=== PATIENT | female | born 1985 | race Caucasian/White ===

== ENCOUNTER 2018-02-27 16:09 | Emergency (ER) | payer OTHER ==
[~2018-02-27] VITALS: Ht 149.9 cm; Wt 64.4 kg
[~2018-02-27 16:09] MED LIST: AMOX500C25; [UNRECOGNIZED DRUG - CODE]
[2018-02-27 16:48] VITALS: BP 131/78
--- NOTE | 2018-02-27 16:58 | NUR ---
patient to lobby with steady gait. awaiting available room. nad.
--- NOTE | 2018-02-27 17:22 | NUR ---
PATIENT AMBULATED TO THE ER BED 6.
--- NOTE | 2018-02-27 17:30 | NUR ---
PT PRESENTS TO THE ED WITH C/O ABD PAIN. PATIENT STATES SHE HAS BEEN HAVING DIARRHEA SINCE YESTERDAY AND HAD EPISODES OF VOMITING. PATIENT RATES PAIN 8/10. NO ACTIVE VOMTING AT THIS TIME. PATIENT REPORTS THAT HER LAST MEAL WAS LAST NIGHT. BED LOWERED. MD MADE AWARE OF PATIENT'S STATUS
--- NOTE | 2018-02-27 19:13 | NUR ---
Pt report given to KHADAR STALEY. Transfer of care at this time.
--- NOTE | 2018-02-27 19:15 | NUR ---
ASSUMED CARE OF PT AT THIS TIME, PT IN BED, AWAKE AND ACTING APPROPRIATE, WILL CONTINUE TO MONITOR.
[2018-02-27] MEDS: DICYCLOMINE 20 MG/2 ML VIAL IM ONE (19:24)
[2018-02-27 19:33] LABS: HEMOGLOBIN 13.5 g/dL (12.0-16.0); RED BLOOD CELL COUNT(AUTO) 5.44 MIL/uL (4.20-5.40); WHITE BLOOD COUNT (AUTO) 13.1 K/uL (4.8-10.8)
[2018-02-27 19:34] LABS: BASOPHILS % (AUTO) 0.2 % (0.0-2.0); EOSINOPHILS # (AUTO) 0.2 K/uL (0-0.4); EOSINOPHILS % (AUTO) 1.4 % (0.0-4.0); LYMPHOCYTES # (AUTO) 1.7 K/uL (2.5-16.5); LYMPHOCYTES % (AUTO) 12.9 % (20.5-51.1); MEAN CORPUSCULAR HEMOGLOBIN 25 pg (27-31); MEAN CORPUSCULAR HGB CONC 32 g/dL (33-37); MEAN CORPUSCULAR VOLUME 77.1 fL (80-94); MONOCYTES # (AUTO) 1.3 K/uL (0.8-1.0); MONOCYTES % (AUTO) 9.8 % (1.7-9.3); NEUTROPHILS # (AUTO) 9.9 K/uL (1.8-7.7); NEUTROPHILS % (AUTO) 75.7 % (42.2-75.2); PLATELET COUNT (AUTO) 409 K/uL (140-450); RED CELL DISTRIBUTION WIDTH 15.7 % (11.6-13.7)
[2018-02-27 19:42] LABS: ANION GAP 8.8 (8-16); CARBON DIOXIDE 29.3 mmol/L (21-32); CREATININE 0.8 mg/dL (0.6-1.3); POTASSIUM 4.1 mmol/L (3.5-5.1)
[2018-02-27 19:49] LABS: ALBUMIN 3.4 g/dL (3.4-5.0); TOTAL BILIRUBIN 0.3 mg/dL (0.0-1.0)
[2018-02-27] MEDS: KETOROLAC 30 MG/ML VIAL IM ONE (20:58)
--- NOTE | 2018-02-27 20:58 | NUR ---
PT TAKEN TO CT
--- NOTE | 2018-02-27 21:07 | NUR ---
PT RETURN FROM CT
--- NOTE | 2018-02-27 21:30 | NUR ---
PT STATES SHE IS FEELING BETTER, ER MADE AWARE
--- NOTE | 2018-02-27 21:32 | NUR ---
Dr. Beckwith evaluating patient at bedside.
[2018-02-27 21:55] VITALS: BP 120/82
--- NOTE | 2018-02-27 21:55 | NUR ---
Patient discharged with v/s stable. Written and verbal after care instructions given and explained. Patient alert, oriented and verbalized understanding of instructions. Ambulatory with steady gait. All questions addressed prior to discharge. ID band removed. Patient advised to follow up with PMD. Rx of FLAGYL 500MG AND BENTYL 20MG given. Patient educated on indication of medication including possible reaction and side effects. Opportunity to ask questions provided and answered.
== END 2018-02-27 21:55 | disposition home or self-care (01) ==
LOC: MED 16:09
DX: R10.84 Generalized abdominal pain (principal); R19.7 Diarrhea, unspecified; R11.10 Vomiting, unspecified; Z79.2 Long term (current) use of antibiotics; Z79.899 Other long term (current) drug therapy
CPT/HCPCS: 36415; 74176; 80053; 81025; 83690; 85025; 96372; 99284; J0500; J1885

== ENCOUNTER 2018-08-10 17:30 | Emergency (ER) | payer OTHER ==
[~2018-08-10] VITALS: Ht 154.9 cm; Wt 75.7 kg
[2018-08-10 17:33] VITALS: BP 136/83
--- NOTE | 2018-08-10 17:38 | NUR ---
PT AMB TO ER LOBBY. NO DISTRESS NOTED. PT [id number].
--- NOTE | 2018-08-10 18:06 | NUR ---
Pt. ambulated to bed 6
[2018-08-10] MEDS ORDERED: NACL 0.9% 1,000 ML IV SCH (18:16)
--- NOTE | 2018-08-10 18:30 | NUR ---
PT BIB SELF WITH C/O UTI SYMPTOMS SINCE MONDAY. +VAGINAL ITCHING AND DYSURIA, PAIN 05/16. WENT TO URGENT CARE ON MONDAY, DIAGNOSED WITH UTI. PRESCRIBED FLUCONAZOLE, SULFAMETHOXALE. DENIES LOWER BACK PAIN. PMH- DEPRESSION RX- BUPROPION, SERTRALINE HCL
[2018-08-10 18:58] LABS: BASOPHILS # (AUTO) 0.1 K/uL (0.00-0.22); BASOPHILS % (AUTO) 0.9 % (0.0-2.0); EOSINOPHILS # (AUTO) 0.3 K/uL (0-0.4); HEMATOCRIT 44.4 % (36-48); HEMOGLOBIN 14.5 g/dL (12.0-16.0); LYMPHOCYTES # (AUTO) 2.8 K/uL (2.5-16.5); LYMPHOCYTES % (AUTO) 25.4 % (20.5-51.1); MEAN CORPUSCULAR HEMOGLOBIN 26 pg (27-31); MEAN CORPUSCULAR HGB CONC 33 g/dL (33-37); MEAN CORPUSCULAR VOLUME 79.5 fL (80-94); MONOCYTES % (AUTO) 9.1 % (1.7-9.3); NEUTROPHILS # (AUTO) 6.8 K/uL (1.8-7.7); NEUTROPHILS % (AUTO) 61.6 % (42.2-75.2); PLATELET COUNT (AUTO) 463 K/uL (140-450); RED BLOOD CELL COUNT(AUTO) 5.59 MIL/uL (4.20-5.40); RED CELL DISTRIBUTION WIDTH 15.7 % (11.6-13.7)
[2018-08-10 19:02] LABS: APPEARANCE,URINE HAZY (CLEAR); BILIRUBIN,URINE NEGATIVE (NEGATIVE); BLOOD, URINE TRACE-I (NEGATIVE); COLOR,URINE YELLOW (YELLOW); LEUKOCYTE ESTERASE ,URINE 2+ (NEGATIVE); NITRITE, URINE NEGATIVE (NEGATIVE); UGLUCOSE NEGATIVE (NEGATIVE)
[2018-08-10 19:23] LABS: ALBUMIN 3.5 g/dL (3.4-5.0); ANION GAP 12.3 (8-16); CARBON DIOXIDE 25.6 mmol/L (21-32); CREATININE 0.7 mg/dL (0.6-1.3); TOTAL BILIRUBIN 0.4 mg/dL (0.0-1.0)
[2018-08-10 19:35] LABS: POTASSIUM 6.9 mmol/L (3.5-5.1)
[2018-08-10 19:36] LABS: RBC,URINE 0-5 /HPF (0-5)
[2018-08-10 19:37] LABS: WBC,URINE >25 (MANY) /HPF (0-5)
--- NOTE | 2018-08-10 19:45 | NUR ---
LAB REDRAW, SENT TO LAB
--- NOTE | 2018-08-10 19:59 | NUR ---
PELVIC SETUP COMPLETE
[2018-08-10 20:05] LABS: ANION GAP 13.7 (8-16); CARBON DIOXIDE 23.4 mmol/L (21-32); CREATININE 0.8 mg/dL (0.6-1.3); POTASSIUM 4.1 mmol/L (3.5-5.1)
--- NOTE | 2018-08-10 20:30 | NUR ---
LAB CALLED FOR URINE COLLECETION. PT MADE AWARE OF REQUIRING MORE URINE , JOHNY TO SENT OUT FOR ALPHONSO MITCHELL.
[2018-08-10] MEDS ORDERED: cefTRIAXone 1,000 MG VIAL ONE (20:31)
[2018-08-10] MEDS ORDERED: PHENAZOPYRIDINE 100 MG TAB PO ONE (20:40)
[2018-08-10 21:01] VITALS: BP 146/79
--- NOTE | 2018-08-10 21:01 | NUR ---
Patient discharged with v/s stable. Written and verbal after care instructions given and explained. Patient alert, oriented and verbalized understanding of instructions. Ambulatory with steady gait. All questions addressed prior to discharge. ID band removed. Patient advised to follow up with PMD. Rx of TYELENOL WITHCODEINE, PHENAZOPYRIDINE, KEFLEX given. Patient educated on indication of medication including possible reaction and side effects. Opportunity to ask questions provided and answered.
== END 2018-08-10 21:01 | disposition home or self-care (01) ==
LOC: MED 17:30
DX: N76.0 Acute vaginitis (principal); N39.0 Urinary tract infection, site not specified; Z79.899 Other long term (current) drug therapy
CPT/HCPCS: 36415; 80048; 80053; 81001; 81025; 83690; 85025; 87086; 87210; 93005; 96365; 99284; J0696; J7030

== ENCOUNTER 2019-02-14 11:36 | Emergency (ER) | payer OTHER ==
[~2019-02-14] VITALS: Ht 149.9 cm; Wt 73.3 kg
[2019-02-14 12:06] VITALS: BP 142/66
--- NOTE | 2019-02-14 12:08 | NUR ---
TRIAGE COMPLETE. VSS. RETURNED TO LOBBY TO WAIT FOR BED IN ED.
--- NOTE | 2019-02-14 13:30 | NUR ---
AMBULATED TO BED 7 WITH STEADY GAIT.
--- NOTE | 2019-02-14 13:31 | NUR ---
PT C/O HEADACHE WITH DIZZINESS, NAUSEA/VOMITING, BLURRED VISION X 3 DAYS. PATIENT STATES PAIN OF 7/10 AROUND THE WHOLE HEAD AT THIS TIME; VSS; PATIENT POSITIONED FOR COMFORT; HOB ELEVATED; BEDRAILS UP X1; BED DOWN. ER MD MADE AWARE OF PT STATUS.
--- NOTE | 2019-02-14 14:30 | NUR ---
PT IS RESTING IN BED WITH EYES OPENED. PT IS ON MINITOR.
[2019-02-14] MEDS ORDERED: KETOROLAC 30 MG/ML VIAL IVP ONE (14:40)
[2019-02-14] MEDS ORDERED: NACL 0.9% 1,000 ML IV ONE (14:40)
[2019-02-14 14:55] LABS: BASOPHILS % (AUTO) 0.4 % (0.0-2.0); EOSINOPHILS # (AUTO) 0.1 K/uL (0-0.4); EOSINOPHILS % (AUTO) 1.6 % (0.0-4.0); HEMOGLOBIN 13.6 g/dL (12.0-16.0); LYMPHOCYTES # (AUTO) 2.6 K/uL (2.5-16.5); MEAN CORPUSCULAR HEMOGLOBIN 25 pg (27-31); MEAN CORPUSCULAR HGB CONC 32 g/dL (33-37); MONOCYTES # (AUTO) 0.6 K/uL (0.8-1.0); MONOCYTES % (AUTO) 8.3 % (1.7-9.3); NEUTROPHILS # (AUTO) 4.1 K/uL (1.8-7.7); NEUTROPHILS % (AUTO) 54.7 % (42.2-75.2); PLATELET COUNT (AUTO) 321 K/uL (140-450); RED BLOOD CELL COUNT(AUTO) 5.39 MIL/uL (4.20-5.40); RED CELL DISTRIBUTION WIDTH 15.8 % (11.6-13.7); WHITE BLOOD COUNT (AUTO) 7.5 K/uL (4.8-10.8)
[2019-02-14 15:10] LABS: ANION GAP 13.5 (8-16); CARBON DIOXIDE 26.8 mmol/L (21-32); CREATININE 0.7 mg/dL (0.6-1.3); POTASSIUM 4.3 mmol/L (3.5-5.1)
[2019-02-14 15:16] LABS: ALBUMIN 3.6 g/dL (3.4-5.0); TOTAL BILIRUBIN 0.4 mg/dL (0.0-1.0)
--- NOTE | 2019-02-14 15:50 | NUR ---
PT HAS BEEN TAKEN TO CT SCAN VIA WHEELCHAIR ASSISTED BY FITNESS MANAGER.
--- NOTE | 2019-02-14 16:02 | NUR ---
PT HAS BEEN TAKEN BACK FROM CT SCAN VIA WHEELCHAIR ASSISTED BY SLOT MANAGER.
[2019-02-14 16:56] LABS: APPEARANCE,URINE CLEAR (CLEAR); COLOR,URINE YELLOW (YELLOW)
[2019-02-14 16:57] LABS: BILIRUBIN,URINE NEGATIVE (NEGATIVE); BLOOD, URINE NEGATIVE (NEGATIVE); LEUKOCYTE ESTERASE ,URINE 1+ (NEGATIVE); NITRITE, URINE NEGATIVE (NEGATIVE); UGLUCOSE NEGATIVE (NEGATIVE)
[2019-02-14 16:58] LABS: RBC,URINE 0-5 /HPF (0-5)
[2019-02-14 17:33] VITALS: BP 134/84
--- NOTE | 2019-02-14 17:33 | NUR ---
Patient discharged with v/s stable by Dr. Holliday. Written and verbal after care instructions given and explained. Patient alert, oriented and verbalized understanding of instructions. Ambulatory with steady gait. All questions addressed prior to discharge. ID band removed. Patient advised to follow up with PMD. Rx of Ciprofloxacin given. Patient educated on indication of medication including possible reaction and side effects. Opportunity to ask questions provided and answered.
== END 2019-02-14 17:33 | disposition home or self-care (01) ==
LOC: MED 11:36
DX: N39.0 Urinary tract infection, site not specified (principal); R11.2 Nausea with vomiting, unspecified; Z98.890 Other specified postprocedural states; Z79.899 Other long term (current) drug therapy; Z79.2 Long term (current) use of antibiotics
CPT/HCPCS: 36415; 70450; 80053; 81001; 81025; 85025; 87086; 96361; 96374; 99284; J1885; J7030

== ENCOUNTER 2019-08-18 03:51 | Emergency (ER) | payer OTHER, SELFPAY ==
[~2019-08-18] VITALS: Ht 149.9 cm; Wt 63.5 kg
[2019-08-18 04:01] VITALS: BP 140/88
--- NOTE | 2019-08-18 04:05 | NUR ---
PT TAKEN TO BED 4
[2019-08-18] MEDS ORDERED: LIDOCAINE MPF 1% 10 MG/ML VIAL INJ ONE (04:15)
[2019-08-18] MEDS ORDERED: DEXAMETHASONE 4 MG/ML VIAL PO STA (04:36)
[2019-08-18] MEDS ORDERED: KETOROLAC 30 MG/ML VIAL IM STA (04:36)
--- NOTE | 2019-08-18 04:37 | NUR ---
Susan henriquez in [facility] - 08/18/19 at 0438 by [facility] BACITRACIN WAS PLACED ON PTS LEFT ARM WOUND. LG BANDAID PLACED TO COVER WOUND. PTS PMSC WNL.
--- NOTE | 2019-08-18 05:00 | NUR ---
COVID SWAB COLLECTED ON PT, AND TAKEN TO LAB
[2019-08-18 05:05] VITALS: BP 140/88
--- NOTE | 2019-08-18 05:05 | NUR ---
Patient discharged with v/s stable. Written and verbal after care instructions given and explained. Patient alert, oriented and verbalized understanding of instructions. Ambulatory with steady gait. All questions addressed prior to discharge. ID band removed. Patient advised to follow up with PMD. Rx of MOTRIN, PREDNISONE, AMOXICILLIN given. Patient educated on indication of medication including possible reaction and side effects. Opportunity to ask questions provided and answered.
== END 2019-08-18 05:05 | disposition home or self-care (01) ==
LOC: MED 03:51 → EEVIPCON 03:51 → MED 05:05
DX: H92.01 Otalgia, right ear (principal); R07.0 Pain in throat; Z20.828 Contact with and (suspected) exposure to other viral communicable diseases
CPT/HCPCS: 96372; 99283; J1100; J1885; J2001; U0003

== ENCOUNTER 2021-04-22 07:42 | Emergency (ER) | payer OTHER, SELFPAY ==
[~2021-04-22] VITALS: Ht 152.4 cm; Wt 58.5 kg
[2021-04-22 07:45] VITALS: BP 116/81
--- NOTE | 2021-04-22 08:02 | NUR ---
PT STATES SHE IS UNABLE TO PROVIDE UA SAMPLE AT THIS TIME, NESTOR MADE AWARE.
--- NOTE | 2021-04-22 08:11 | NUR ---
DR. CRATY AT PT BEDSIDE FOR FURTHER EVALUATION.
--- NOTE | 2021-04-22 08:29 | NUR ---
PT WAS TAKEN FOR CT
--- NOTE | 2021-04-22 08:35 | NUR ---
PT TAKEN TO ER BED 9 VIA W/C.
--- NOTE | 2021-04-22 08:36 | NUR ---
DOG FOOD SHREDDER OPERATOR AT PT BEDSIDE.
[2021-04-22] MEDS: KETOROLAC 30 MG/ML VIAL IM ONE (08:44)
[2021-04-22 08:57] LABS: BASOPHILS # (AUTO) 0.1 K/uL (0.00-0.22); BASOPHILS % (AUTO) 0.6 % (0.0-2.0); EOSINOPHILS # (AUTO) 0.1 K/uL (0-0.4); EOSINOPHILS % (AUTO) 1.5 % (0.0-4.0); HEMATOCRIT 41.5 % (36-48); HEMOGLOBIN 13.8 g/dL (12.0-16.0); LYMPHOCYTES % (AUTO) 21.9 % (20.5-51.1); MEAN CORPUSCULAR HEMOGLOBIN 28 pg (27-31); MEAN CORPUSCULAR HGB CONC 33 g/dL (33-37); MEAN CORPUSCULAR VOLUME 84.8 fL (80-94); MONOCYTES # (AUTO) 0.8 K/uL (0.8-1.0); NEUTROPHILS # (AUTO) 6.1 K/uL (1.8-7.7); PLATELET COUNT (AUTO) 400 K/uL (140-450); RED BLOOD CELL COUNT(AUTO) 4.89 MIL/uL (4.20-5.40); RED CELL DISTRIBUTION WIDTH 13.7 % (11.6-13.7)
[2021-04-22] MEDS: HYDROcodone/APAP 5/325 MG 1 TAB TAB PO ONE (09:17)
[2021-04-22 09:35] LABS: ALBUMIN 3.6 g/dL (3.4-5.0); ANION GAP 12.4 (8-16); CREATININE 0.9 mg/dL (0.6-1.3); POTASSIUM 4.4 mmol/L (3.5-5.1); TOTAL BILIRUBIN 0.4 mg/dL (0.0-1.0)
[2021-04-22] MEDS: fentaNYL citrate 0.05 MG/ML VIAL NS ONE (09:38)
--- NOTE | 2021-04-22 09:39 | NUR ---
PT RESTING IN BED, VSS, PAIN 10/10 MEDICATED PER MD ORDER.
[2021-04-22 09:54] LABS: APPEARANCE,URINE CLEAR (CLEAR); BILIRUBIN,URINE 1+ (NEGATIVE); BLOOD, URINE TRACE-I (NEGATIVE); COLOR,URINE YELLOW (YELLOW); LEUKOCYTE ESTERASE ,URINE NEGATIVE (NEGATIVE); NITRITE, URINE POSITIVE (NEGATIVE); UGLUCOSE NEGATIVE (NEGATIVE)
[2021-04-22 10:59] LABS: CALCIUM OXALATE CRYSTALS,UR None Seen /HPF (None Seen); RBC,URINE 0-5 /HPF (0-5); TRICHOMONAS,URINE None Seen /HPF (None Seen); URIC ACID CRYSTALS,URINE None Seen /HPF (None Seen); WBC,URINE 0-5 /HPF (0-5); YEAST,URINE None Seen /HPF (None Seen)
[2021-04-22 11:00] LABS: TRIPLE PHOSPHATE CRYSTAL,UR None Seen /HPF (None Seen)
[2021-04-22 11:04] LABS: COARSE GRANULAR CASTS,URINE None Seen /LPF (None Seen); FINE GRANULAR CASTS,URINE None Seen /LPF (None Seen); HYALINE CASTS, URINE None Seen /LPF (None Seen); OTHER CASTS, URINE None Seen /LPF (None Seen); OTHER CRYSTALS,URINE HIPPURIC ACID 1+ /HPF (None Seen); RED BLOOD CELL CASTS,URINE None Seen /LPF (None Seen); URINE AMORPHOUS URATE None Seen /HPF (None Seen); WAXY CASTS,URINE None Seen /LPF (None Seen)
[2021-04-22] MEDS ORDERED: cefTRIAXone 1,000 MG VIAL ONE (11:06)
[2021-04-22] MEDS ORDERED: TAMS0.4C96 PO (11:18)
[2021-04-22] MEDS ORDERED: NAPR-54 PO (11:18)
[2021-04-22] MEDS ORDERED: ACET-8386 PO (11:18)
[2021-04-22] MEDS ORDERED: CEPH-588 PO (11:18)
--- NOTE | 2021-04-22 11:43 | NUR ---
PT IN BED, VSS, HOB ELEVATED FOR COMFORT, WILL CONTINUE TO MONITOR.
[2021-04-22 12:51] VITALS: BP 108/88
--- NOTE | 2021-04-22 12:51 | NUR ---
PT RESTING IN BED, VSS, WILL CONTINUE TO MONITOR.
--- NOTE | 2021-04-22 13:05 | NUR ---
Patient discharged with v/s stable. Written and verbal after care instructions ABOUT KIDNEY STONES given and explained. Patient alert, oriented and verbalized understanding of instructions. Ambulatory with steady gait. All questions addressed prior to discharge. ID band removed. Patient advised to follow up with PMD. Rx of NORCO 5-325MG, KEFLEX, NAPROXEN, AND FLOMAX given. Patient educated on indication of medication including possible reaction and side effects. Opportunity to ask questions provided and answered.
--- NOTE | 2021-04-22 13:06 | NUR ---
EXPLAINED TO PT THAT IT IS UNSAFE TO DRIVE S/P MEDICATIONS. OFFERED PT A BUS PASS/TAXI VOUCHER, PT DECLINED AND STATED SHE WILL ORDER AN UBER AND WAIT IN THE LOBBY.
== END 2021-04-22 13:05 | disposition home or self-care (01) ==
LOC: MED 07:42
DX: N20.1 Calculus of ureter (principal); F32.9 Major depressive disorder, single episode, unspecified; Z98.890 Other specified postprocedural states; Z79.899 Other long term (current) drug therapy
CPT/HCPCS: 36415; 74176; 80053; 81001; 81025; 85025; 96365; 96372; 99284; J0696; J1885; J3010

== ENCOUNTER 2021-05-01 11:04 | Emergency (ER) | payer OTHER ==
[~2021-05-01] VITALS: Ht 152.4 cm; Wt 59.9 kg
[~2021-05-01 11:04] MED LIST changes: +ACET-8386 PO; +CEPH-588 PO; +NAPR-54 PO; +TAMS0.4C96 PO
[2021-05-01 11:12] VITALS: BP 136/92
--- NOTE | 2021-05-01 11:29 | NUR ---
35 Y/O Female c/o of lower pelvic/vahinal pain x 3 days. Patient is complaining of urinary burning x1 week. Patient was seen here for UTI and Right Kidney Stone on 04/22/21. Patient is currently on ATB. Medical History: DEPRESSION, TUBALIDATION, R KIDNEY STONE NKA
--- NOTE | 2021-05-01 11:38 | NUR ---
HANDED URINE SPECIMEN TO CPT YUDY
[2021-05-01 12:49] LABS: APPEARANCE,URINE CLEAR (CLEAR); BILIRUBIN,URINE NEGATIVE (NEGATIVE); BLOOD, URINE 3+ (NEGATIVE); COLOR,URINE YELLOW (YELLOW); LEUKOCYTE ESTERASE ,URINE NEGATIVE (NEGATIVE); NITRITE, URINE NEGATIVE (NEGATIVE); PH,URINE 6.5 (5.0-9.0); UGLUCOSE NEGATIVE (NEGATIVE)
[2021-05-01] MEDS ORDERED: SULF-58 PO (12:50)
[2021-05-01] MEDS ORDERED: CLOT1CRE83 TP (12:50)
[2021-05-01 13:22] LABS: RBC,URINE 11-20 (MOD) /HPF (0-5)
[2021-05-01 13:23] LABS: CALCIUM OXALATE CRYSTALS,UR None Seen /HPF (None Seen); OTHER CRYSTALS,URINE None Seen /HPF (None Seen); TRICHOMONAS,URINE None Seen /HPF (None Seen); TRIPLE PHOSPHATE CRYSTAL,UR None Seen /HPF (None Seen); URIC ACID CRYSTALS,URINE None Seen /HPF (None Seen); URINE AMORPHOUS URATE None Seen /HPF (None Seen); YEAST,URINE None Seen /HPF (None Seen)
[2021-05-01 13:24] LABS: COARSE GRANULAR CASTS,URINE None Seen /LPF (None Seen); FINE GRANULAR CASTS,URINE None Seen /LPF (None Seen); HYALINE CASTS, URINE None Seen /LPF (None Seen); OTHER CASTS, URINE None Seen /LPF (None Seen); RED BLOOD CELL CASTS,URINE None Seen /LPF (None Seen); WAXY CASTS,URINE None Seen /LPF (None Seen)
[2021-05-01] MEDS ORDERED: SULF-954 PO (13:33)
--- NOTE | 2021-05-01 13:38 | NUR ---
Dr. Patiño at bedside re-evaluating patient.
[2021-05-01 13:52] VITALS: BP 143/84
--- NOTE | 2021-05-01 13:53 | NUR ---
Patient discharged with v/s stable. Written and verbal after care instructions given. Patient alert, oriented and verbalized understanding of instructions. Ambulatory with steady gait. All questions addressed prior to discharge. ID band removed. Patient advised to follow up with PMD. Rx of Clotrimazole and Sulfamethoxazole/Trimethoprim given. Opportunity to ask questions provided and answered.
== END 2021-05-01 11:53 | disposition home or self-care (01) ==
LOC: MED 11:04
DX: R30.0 Dysuria (principal); N89.8 Other specified noninflammatory disorders of vagina
CPT/HCPCS: 81001; 81025; 87086; 99283

== ENCOUNTER 2021-07-01 14:59 | Emergency (ER) | payer OTHER ==
[~2021-07-01] VITALS: Ht 154.9 cm; Wt 65.8 kg
[~2021-07-01 14:59] MED LIST changes: +CLOT1CRE83 TP; +SULF-954 PO
[2021-07-01 15:07] VITALS: BP 148/101
--- NOTE | 2021-07-01 15:34 | NUR ---
PT C/O ANXIETY, DIZZINESS, NAUSEA AFTER TAKING 2 SCOOPS OF PRE WORK OUT THIS AM.
[2021-07-01] MEDS ORDERED: ONDANSETRON 4 MG/2 ML VIAL IVP ONE (15:40)
[2021-07-01] MEDS ORDERED: NACL 0.9% 1,000 ML IV ONE (15:40)
[2021-07-01 16:36] VITALS: BP 122/70
--- NOTE | 2021-07-01 17:11 | NUR ---
Patient discharged with v/s stable. Written and verbal after care instructions given and explained. Patient verbalized understanding. Ambulatory with . All questions addressed prior to discharge. Advised to follow up with PMD.
== END 2021-07-01 17:11 | disposition home or self-care (01) ==
LOC: MED 14:59
DX: F41.9 Anxiety disorder, unspecified (principal); R11.10 Vomiting, unspecified; R03.0 Elevated blood-pressure reading, without diagnosis of hypertension; Z79.899 Other long term (current) drug therapy
CPT/HCPCS: 71045; 81002; 81025; 93005; 96361; 96374; 99283; J2405; J7030; Q0092

== ENCOUNTER 2022-07-08 23:30 | Emergency (ER) | payer OTHER ==
[~2022-07-08] VITALS: Ht 149.9 cm; Wt 59.0 kg
[~2022-07-08 23:30] MED LIST changes: -ACET-8386 PO; +ACET-8905 PO
[2022-07-09] VITALS: BP 142/102
--- NOTE | 2022-07-09 00:05 | NUR ---
TO LOBBY FOLLOWING TRIAGE
[2022-07-09] MEDS ORDERED: KETOROLAC 30 MG/ML VIAL IM ONE (00:10)
[2022-07-09] MEDS ORDERED: PROCHLORPERAZINE 10 MG/2 ML VIAL IM ONE (00:10)
--- NOTE | 2022-07-09 00:10 | NUR ---
HEADACHE SINCE THIS AM WITH VOMITING
--- NOTE | 2022-07-09 00:23 | NUR ---
PT TO BED 12
[2022-07-09] MEDS ORDERED: IBUP-2213 PO (01:27)
[2022-07-09] MEDS ORDERED: ONDA-188 SL (01:27)
--- NOTE | 2022-07-09 01:45 | NUR ---
Patient discharged with v/s stable. Written and verbal after care instructions given and explained. Patient alert, oriented and verbalized understanding of instructions. Ambulatory with steady gait. All questions addressed prior to discharge. ID band removed. Patient advised to follow up with PMD. Rx of IBUPROFEN AND ONDANSETRON given. Patient educated on indication of medication including possible reaction and side effects. Opportunity to ask questions provided and answered.
[2022-07-09 01:51] VITALS: BP 130/98
== END 2022-07-09 01:45 | disposition home or self-care (01) ==
LOC: MED 23:30
DX: R51.9 Headache, unspecified (principal); R11.2 Nausea with vomiting, unspecified; Z79.899 Other long term (current) drug therapy; Z98.890 Other specified postprocedural states
CPT/HCPCS: 81025; 96372; 99284; J0780; J1885; Q0163

== ENCOUNTER 2022-07-12 21:32 | Emergency (ER) | payer OTHER ==
[~2022-07-12] VITALS: Ht 149.9 cm; Wt 59.0 kg
[~2022-07-12 21:32] MED LIST changes: +IBUP-2213 PO; +ONDA-188 SL
[2022-07-12 22:10] VITALS: BP 134/72
--- NOTE | 2022-07-12 22:17 | NUR ---
TO LOBBY FOLLOWING TRIAGE
--- NOTE | 2022-07-13 00:12 | NUR ---
Susan henriquez in [facility] - 07/13/22 at 0113 by [id number] PT GIVEN DC INSTRUCTIONS BY DR. CRUZ.
--- NOTE | 2022-07-13 00:18 | NUR ---
PT GIVEN URINE COLLECTION CUP
--- NOTE | 2022-07-13 00:34 | NUR ---
Dr. Holliday examining patient.
[2022-07-13] MEDS ORDERED: MECLIZINE 25 MG TAB PO ONE (00:40)
[2022-07-13] MEDS ORDERED: MECL-303 PO (01:09)
--- NOTE | 2022-07-13 01:13 | NUR ---
PT GIVEN DC INSTRUCTIONS BY DR. CRUZ
[2022-07-13] MEDS ORDERED: ONDA-188 SL (01:14)
[2022-07-13 01:15] VITALS: BP 134/72
[2022-07-13] MEDS ORDERED: ONDANSETRON 4 MG TAB PO ONE (01:15)
--- NOTE | 2022-07-13 01:15 | NUR ---
Patient discharged with v/s stable. Written and verbal after care instructions given and explained. Patient alert, oriented and verbalized understanding of instructions. Ambulatory with steady gait. All questions addressed prior to discharge. ID band removed. Patient advised to follow up with PMD. Rx of MECLAZINE given. Patient educated on indication of medication including possible reaction and side effects. Opportunity to ask questions provided and answered.
[2022-07-13 01:34] LABS: APPEARANCE,URINE SL CLOUDY (CLEAR); BILIRUBIN,URINE 1+ (NEGATIVE); BLOOD, URINE NEGATIVE (NEGATIVE); COLOR,URINE YELLOW (YELLOW); LEUKOCYTE ESTERASE ,URINE NEGATIVE (NEGATIVE); NITRITE, URINE NEGATIVE (NEGATIVE); UGLUCOSE NEGATIVE (NEGATIVE)
[2022-07-13 01:44] LABS: BARBITURATE, URINE NEGATIVE ng/ml (NEG <=200); BENZODIAZEPINE, URINE NEGATIVE ng/mL (NEG <=200); CANNABINOID, URINE NEGATIVE ng/mL (NEG <=50); COCAINE, URINE NEGATIVE ng/mL (NEG <=300); OPIATE, URINE NEGATIVE ng/mL (NEG <=2000); PHENCYCLIDINE SCREEN,URINE NEGATIVE ng/mL (NEG <=25)
== END 2022-07-13 01:15 | disposition home or self-care (01) ==
LOC: MED 21:32
DX: R42 Dizziness and giddiness (principal); R11.2 Nausea with vomiting, unspecified; R51.9 Headache, unspecified; Z98.890 Other specified postprocedural states; Z79.899 Other long term (current) drug therapy; Z79.1 Long term (current) use of non-steroidal anti-inflammatories (NSAID); Z79.2 Long term (current) use of antibiotics
CPT/HCPCS: 80305; 81003; 99283; J8597; Q0162

== ENCOUNTER 2022-08-16 18:34 | Emergency (ER) | payer OTHER ==
[~2022-08-16] VITALS: Ht 149.9 cm; Wt 61.2 kg
[~2022-08-16 18:34] MED LIST changes: +MECL-303 PO
[2022-08-16 18:54] VITALS: BP 140/84; PULSE 75; RESP 17; TEMP 98.8; O2SAT 97
--- NOTE | 2022-08-16 21:30 | NUR ---
pt ambulated to bed 3
[2022-08-16] MEDS ORDERED: KETOROLAC 30 MG/ML VIAL IM ONE (23:00)
--- NOTE | 2022-08-16 23:08 | NUR ---
CHAPERONED DOING EXAM.
--- NOTE | 2022-08-16 23:09 | NUR ---
URINE GIVEN TO LAB
--- NOTE | 2022-08-16 23:10 | NUR ---
36yo female cc of 3/10 pain at buttocks x 1 day. denies trauma. denies n/v/d. reports normal bowel pattern. denies allergy and PMHx pt resting on bed, A/Ox4. not in distress. on monitor. placed on moderate high back rest. call light within reach, pt instructed on how to use call light, pt returned demonstration. all needs met at this time. bed locked in lowest position, side rails x2 for safety
[2022-08-17 01:34] LABS: APPEARANCE,URINE CLEAR (CLEAR); BILIRUBIN,URINE NEGATIVE (NEGATIVE); BLOOD, URINE NEGATIVE (NEGATIVE); COLOR,URINE YELLOW (YELLOW); LEUKOCYTE ESTERASE ,URINE NEGATIVE (NEGATIVE); NITRITE, URINE NEGATIVE (NEGATIVE); UGLUCOSE NEGATIVE (NEGATIVE)
[2022-08-17 01:45] LABS: BARBITURATE, URINE NEGATIVE ng/ml (NEG <=200); BENZODIAZEPINE, URINE NEGATIVE ng/mL (NEG <=200); CANNABINOID, URINE NEGATIVE ng/mL (NEG <=50); COCAINE, URINE NEGATIVE ng/mL (NEG <=300); OPIATE, URINE NEGATIVE ng/mL (NEG <=2000); PHENCYCLIDINE SCREEN,URINE NEGATIVE ng/mL (NEG <=25)
--- NOTE | 2022-08-17 02:40 | NUR ---
pt resting on bed, A/Ox4. not in distress. on monitor. placed on moderate high back rest. call light within reach, pt instructed on how to use call light, pt returned demonstration. all needs met at this time. bed locked in lowest position, side rails x2 for safety
[2022-08-17] MEDS ORDERED: ACET-10509 PO (03:08)
[2022-08-17 03:27] VITALS: BP 120/84; PULSE 75; RESP 17; TEMP 98.7; O2SAT 97
--- NOTE | 2022-08-17 03:27 | NUR ---
Patient discharged with v/s stable. Written and verbal after care instructions given and explained. Patient alert, oriented and verbalized understanding of instructions. Ambulatory with steady gait. All questions addressed prior to discharge. ID band removed. Patient advised to follow up with PMD. Rx given to pt. Patient educated on indication of medication including possible reaction and side effects. Opportunity to ask questions provided and answered.
== END 2022-08-17 03:27 | disposition home or self-care (01) ==
LOC: MED 18:34
DX: K62.89 Other specified diseases of anus and rectum (principal)
CPT/HCPCS: 76830; 80305; 81003; 81025; 96372; 99285; J1885; Q0092

== ENCOUNTER 2023-08-07 14:36 | Emergency (ER) | payer OTHER ==
[~2023-08-07] VITALS: Ht 149.9 cm; Wt 62.8 kg
[~2023-08-07 14:36] MED LIST changes: +ACET-10509 PO; +NAPR-337 PO; -NAPR-54 PO
[2023-08-07 15:07] VITALS: BP 140/91; PULSE 84; RESP 18; TEMP 97.7; O2SAT 97
[2023-08-07] MEDS ORDERED: NITR100C7 PO (16:30)
[2023-08-07] MEDS ORDERED: IBUP-2213 PO (16:30)
[2023-08-07] MEDS ORDERED: PYR100 PO (16:30)
[2023-08-07 16:50] LABS: APPEARANCE,URINE CLEAR (CLEAR); BILIRUBIN,URINE NEGATIVE (NEGATIVE); BLOOD, URINE NEGATIVE (NEGATIVE); COLOR,URINE YELLOW (YELLOW); LEUKOCYTE ESTERASE ,URINE NEGATIVE (NEGATIVE); NITRITE, URINE NEGATIVE (NEGATIVE); PROTEIN,URINE NEGATIVE (NEGATIVE); UGLUCOSE NEGATIVE (NEGATIVE); UROBILINOGEN,URINE 0.2 EU/dL (0.2 - 1)
== END 2023-08-07 17:10 | disposition home or self-care (01) ==
LOC: MED 14:36
DX: R30.0 Dysuria (principal); R39.15 Urgency of urination; R35.0 Frequency of micturition; Z11.3 Encounter for screening for infections with a predominantly sexual mode of transmission; Z79.1 Long term (current) use of non-steroidal anti-inflammatories (NSAID); Z79.2 Long term (current) use of antibiotics; Z79.899 Other long term (current) drug therapy
CPT/HCPCS: 81003; 81025; 87086; 87491; 99283